=== PATIENT | female | born 1995 | race Caucasian/White ===

== ENCOUNTER 2021-02-14 23:37 | Emergency (ER) | payer MEDICAID ==
[~2021-02-14] VITALS: Ht 157.5 cm; Wt 54.4 kg
[2021-02-14 23:50] VITALS: BP 108/87
--- NOTE | 2021-02-14 23:53 | NUR ---
TO LOBBY A/W BED AMBULATORY
[2021-02-15 02:00] VITALS: BP 108/87
--- NOTE | 2021-02-15 02:00 | NUR ---
PATIENT LEFT WITHOUT BEING SEEN BY DR. [email or web address]. NO FURTHER CARE PROVIDED FOR PATIENT.
--- NOTE | 2021-02-15 02:10 | NUR ---
CALLED TO BED, NO ANSWER. WILL TRY AGAIN IN 5 MINS.
== END 2021-02-15 02:00 | disposition left against medical advice (07) ==
LOC: MED 23:37
DX: M54.5 Low back pain (principal); R35.0 Frequency of micturition; Z53.21 Procedure and treatment not carried out due to patient leaving prior to being seen by health care provider

== ENCOUNTER 2023-10-01 23:19 | Emergency (ER) | payer MEDICAID ==
[~2023-10-01] VITALS: Ht 160 cm; Wt 56.7 kg
[2023-10-01 23:37] VITALS: BP 105/65; PULSE 94; RESP 16; TEMP 98.2; O2SAT 96
== END 2023-10-02 01:12 | disposition left against medical advice (07) ==
LOC: MED 23:19
DX: J02.9 Acute pharyngitis, unspecified (principal); R51.9 Headache, unspecified; R09.81 Nasal congestion; Z53.21 Procedure and treatment not carried out due to patient leaving prior to being seen by health care provider
CPT/HCPCS: 99281